=== PATIENT | female | born 1970 | race Caucasian/White ===

== ENCOUNTER → 2017-06-21 | Outpatient (CLI) | payer BC ==
--- NOTE | 2017-06-21 11:03 | CT ---
EXAMINATION TYPE: CT sinus wo con DATE OF EXAM: 06/21/2017 COMPARISON: NONE HISTORY: Chronic sinusitis CT DLP: 575 mGycm. Automated Exposure Control for Dose Reduction was Utilized. TECHNIQUE: CT scan of the sinuses is performed without contrast, axial images are obtained, coronal r eformatted images are also reviewed. FINDINGS: The paranasal sinuses including the frontal, ethmoid, sphenoid, and maxillary sinuses bila terally are well-aerated without abnormal opacification. The ostiomeatal complex is patent bilateral ly on the coronal images. Visualized portion of mastoid air cells show opacity on the left, there is suspected erosion or posto p change present at the lateral aspect of the temporal bone on the left. Temporomandibular joints corby w osteoarthritic change. The globes are intact bilaterally. No thickening of the tympanic membranes . Auditory ossicles show symmetric appearance, no erosion of the scutum bilaterally. IMPRESSION: Findings of the left temporal bone as described. Additional findings above.
== END | disposition home or self-care (01) ==
LOC: RADCTMAIN 08:14
PROVIDERS: ATTEND Otolaryngology
DX: M26.69 Other specified disorders of temporomandibular joint (principal); J32.9 Chronic sinusitis, unspecified
CPT/HCPCS: 70486

== ENCOUNTER 2017-06-30 08:53 | Day surgery (SDC) | payer BC ==
[2017-06-29 08:16] VITALS: BMI 30.5
[~2017-06-30 08:53] MED LIST: LACTATED RINGERS 1,000 ML IV SCH
[2017-06-30] MEDS ORDERED: LIDOCAINE 1% 20 ML VIAL (10MG/ML) FOR IV START INTRADERMA ONE (11:44)
[2017-06-30] MEDS ORDERED: LIDOCAINE 1% INJ 10MG/ML (20 ML MDV) ONE (11:47)
[2017-06-30] MEDS ORDERED: PROPOFOL 10 MG/ML 20 ML VIAL IV ONE (11:47)
[2017-06-30] MEDS ORDERED: fentaNYL (PF) 50 MCG/ML 2 ML AMP ONE (11:47)
[2017-06-30 11:53] VITALS: TEMP 97.3
--- NOTE | 2017-06-30 11:58 | P.PCN ---
Date of Procedure: 06/30/17 Procedure(s) Performed: BRIEF HISTORY: Patient is a 47-year-old, pleasant, white female, scheduled for an upper endoscopy as a part of evaluation of lungs any history of GERD and intermittent dysphagia to solids. PROCEDURE PERFORMED: Esophagogastroduodenoscopy with biopsy. PREOPERATIVE DIAGNOSIS: Long-standing history of GERD and intermittent dysphagia to solids. IV sedation per anesthesia. PROCEDURE: After informed consent was obtained, the patient was brought into the endoscopy unit. IV sedation was administered by Anesthesia under continuous monitoring. Initially the Olympus GIF-140 video endoscope was inserted into the mouth. Esophagus intubated without any difficulty. It was gradually advanced into the stomach and duodenum and carefully examined. The bulb and the second part of the duodenum appeared normal. The scope at this time was withdrawn to the stomach, adequately insufflated with air, and upon careful examination, mucosa of the antrum, had patchy areas of erythema and biopsies were done from this area. The body, cardia and the fundus appeared normal. The scope was then withdrawn into the esophagus. Small sliding Hiatal hernia noted. The GE junction was located at 36 cm from the incisors. There was once partial erosions noted at the GE junction consistent with LA grade A reflux esophagitis. The rest of the esophagus appeared normal and the patient tolerated the procedure well. IMPRESSION: 1. Mild antral gastritis. 2. Small hiatal hernia and LA grade A reflux esophagitis. RECOMMENDATIONS: The findings of this examination were discussed with the patient as well as a family. She was advised to follow with the biopsy results. She will continue with Pepcid 20 mg daily or twice daily based on the symptoms and continue to follow antireflux measures..
[2017-06-30 12:17] VITALS: BP 113/74; PULSE 69; RESP 16
== END 2017-06-30 12:38 | disposition home or self-care (01) ==
LOC: ORWHC2ENDO 08:53
PROVIDERS: ATTEND Internal Medicine Gastroenterology
DX: K29.50 Unspecified chronic gastritis without bleeding (principal); K44.9 Diaphragmatic hernia without obstruction or gangrene; K21.0 Gastro-esophageal reflux disease with esophagitis; Z79.3 Long term (current) use of hormonal contraceptives; Z79.51 Long term (current) use of inhaled steroids; Z79.899 Other long term (current) drug therapy; Z88.2 Allergy status to sulfonamides
CPT/HCPCS: 81025; 43239; J2001; J3010; J2704; 88305

== ENCOUNTER → 2020-08-19 | Outpatient (CLI) | payer BC ==
--- NOTE | 2020-08-20 14:15 | US ---
EXAMINATION TYPE: US thyroid st tissue head/neck DATE OF EXAM: 08/19/2020 COMPARISON: NONE CLINICAL HISTORY: E04.1 Thyroid nodule. h/o nodules and hypothyroidism per patient. Unsure where last imaging was done GLAND SIZE: Right Lobe: 4.0 x 1.3 x 1.9 cm Overall Parenchyma: heterogenous Left Lobe: 4.3 x 1.4 x 1.3 cm Overall Parenchyma: heterogeneous Isthmus Thickness: 0.5 cm NODULES RIGHT: # of nodules measured on right: 0 LEFT: # of nodules measured on left: 0 ISTHMUS: # of nodules measured in the isthmus: 0 Bilateral neck scanned, no evidence of lymphadenopathy. Diffusely heterogeneous bilaterally IMPRESSION: Diffusely heterogeneous thyroid parenchyma without discrete cyst or nodule. The thyroid gland is not enlarged.
== END | disposition home or self-care (01) ==
LOC: RADUSWWP 14:15
PROVIDERS: ATTEND Family Medicine
DX: E04.1 Nontoxic single thyroid nodule (principal); E03.9 Hypothyroidism, unspecified
CPT/HCPCS: 76536

== ENCOUNTER → 2020-09-27 | Outpatient (CLI) | payer BC ==
--- NOTE | 2020-09-28 03:10 | MR ---
EXAMINATION TYPE: MR cervical spine wo con DATE OF EXAM: 09/27/2020 COMPARISON: None HISTORY: Neck pain, left shoulder pain, headaches. Multiplanar multiecho imaging of the cervical spine without contrast. Cervical vertebra have normal alignment. There is mild posterior disc bulging at C5-6 and C6-7. Disc spaces are fairly normal. There is no compression fracture. The cervical spinal cord appears normal. There is no spinal stenosis. There is developmentally large spinal canal. Brainstem is intact. There is no evidence of cervical paraspinal mass. The neural foramina appear well maintained. The skull bas e is intact. IMPRESSION: Mild posterior disc bulging in the lower cervical spine. No spinal stenosis. No fracture.
== END | disposition home or self-care (01) ==
LOC: RADMRIMAIN 18:51
PROVIDERS: ATTEND Orthopaedic Surgery Orthopaedic Surgery of the Spine
DX: R20.2 Paresthesia of skin (principal); M25.78 Osteophyte, vertebrae; G56.02 Carpal tunnel syndrome, left upper limb; E66.3 Overweight; R29.2 Abnormal reflex; M79.12 Myalgia of auxiliary muscles, head and neck; M47.812 Spondylosis without myelopathy or radiculopathy, cervical region; R53.1 Weakness; M43.12 Spondylolisthesis, cervical region; M47.22 Other spondylosis with radiculopathy, cervical region; M50.122 Cervical disc disorder at C5-C6 level with radiculopathy; M50.123 Cervical disc disorder at C6-C7 level with radiculopathy
CPT/HCPCS: 72141

== ENCOUNTER → 2021-10-28 | Outpatient (CLI) | payer BC ==
--- NOTE | 2021-10-29 19:53 | MM ---
Reason for Exam: Screening (asymptomatic). Last mammogram was performed 8 year(s) and 0 month(s) ago. Patient History: Menarche at age 12. First Full-Term at age 25. Patient used Hormonal Contraceptives for 4 years. Paternal aunt had ovarian cancer, age 30. Mother had breast cancer, age 30. Risk Values: [place] 5 year model risk: 2.0%. NCI Lifetime model risk: 16.6%. Prior Study Comparison: 06/11/2008 Bilateral Screening Mammogram, [facility]. 03/18/2010 Bilateral Diagnostic Mammogram, [facility]. 10/23/2013 Bilateral Screening Mammogram, [facility]. Tissue Density: The breast tissue is heterogeneously dense. This may lower the sensitivity of mammography. Findings: Analyzed By CAD. No suspicious groups of microcalcifications, spiculated or lobular masses, architectural distortion or other secondary signs of malignancy are mammographically apparent. Overall Assessment: Benign, BI-RAD 2 Management: Screening Mammogram of both breasts in 1 year. A negative mammogram report should not preclude additional follow up of suspicious palpable abnormalities. Patient should continue monthly self breast exam. A clinical breast exam by your physician is recommended on an annual basis and results should be correlated with mammographic findings. Electronically signed and approved by: Alvarado Styles D.O. Radiologis
== END | disposition home or self-care (01) ==
LOC: RADMAMWWP 10:32
PROVIDERS: ATTEND Obstetrics & Gynecology
DX: Z12.31 Encounter for screening mammogram for malignant neoplasm of breast (principal)
CPT/HCPCS: 77063; 77067

== ENCOUNTER → 2022-07-31 | Outpatient (CLI) | payer BC | END | disposition home or self-care (01) | LOC: LABWHC1 14:33 | PROVIDERS: ATTEND Internal Medicine | DX: E06.3 Autoimmune thyroiditis (principal); E78.2 Mixed hyperlipidemia; K21.9 Gastro-esophageal reflux disease without esophagitis; R00.2 Palpitations | CPT/HCPCS: 36415; 85379 ==

== ENCOUNTER → 2022-09-23 | Outpatient (CLI) | payer BC ==
[2022-09-23 10:01] LABS: ALT 25 U/L (4-34); AST 24 U/L (14-36); African American GFR (CKD) >90 (>60 ml/min/1.73 sqM); Albumin 4.2 g/dL (3.5-5.0); Albumin/Globulin Ratio 1.6; Alkaline Phosphatase 77 U/L (38-126); Anion Gap 9 mmol/L; Blood Urea Nitrogen 10 mg/dL (7-17); Calcium 9.2 mg/dL (8.4-10.2); Carbon Dioxide 29 mmol/L (22-30); Chloride 102 mmol/L (98-107); Globulin 2.6 g/dL; Glucose 87 mg/dL (74-99); Non-African American GFR(CKD) 84 (>60 ml/min/1.73 sqM); Sodium 140 mmol/L (137-145); Total Bilirubin 0.6 mg/dL (0.2-1.3); Total Protein 6.8 g/dL (6.3-8.2)
[2022-09-23 10:10] LABS: Basophils % (A) 1 %; Eosinophils # (A) 0.3 k/uL (0-0.7); Eosinophils % (A) 4 %; HCT 43.6 % (34.0-46.0); HGB 14.8 gm/dL (11.4-16.0); Lymphocytes # (A) 2.3 k/uL (1.0-4.8); Lymphocytes % (A) 32 %; MCH 30.5 pg (25.0-35.0); MCHC 33.9 g/dL (31.0-37.0); MCV 90.1 fL (80.0-100.0); Mean Platelet Volume 8.1; Monocytes # (A) 0.4 k/uL (0-1.0); Monocytes % (A) 6 %; Neutrophils # (A) 4.1 k/uL (1.3-7.7); Neutrophils % (A) 56 %; Platelet Count 264 k/uL (150-450); RBC 4.84 m/uL (3.80-5.40); RDW 12.6 % (11.5-15.5); T4, Free (Free Thyroxine) 1.13 ng/dL (0.78-2.19); WBC 7.3 k/uL (3.8-10.6)
[2022-09-23 10:23] LABS: Potassium 4.3 mmol/L (3.5-5.1)
[2022-09-24 02:16] LABS: Chol/HDL Ratio 2.53 Ratio; LDL Cholesterol,Calculated 73.7 mg/dL (0.0-131.0)
[2022-09-24 02:17] LABS: Follicle Stimulating Hormone 37.3 mIU/mL
[2022-09-24 09:12] LABS: Progesterone 3.5 ng/mL
== END | disposition home or self-care (01) ==
LOC: LABWHC1 08:11
PROVIDERS: ATTEND Internal Medicine
DX: K21.9 Gastro-esophageal reflux disease without esophagitis (principal); N95.2 Postmenopausal atrophic vaginitis; M25.50 Pain in unspecified joint; E78.2 Mixed hyperlipidemia; E06.2 Chronic thyroiditis with transient thyrotoxicosis; R00.2 Palpitations
CPT/HCPCS: 36415; 80053; 80061; 82670; 83001; 84144; 84403; 84432; 84439; 84443; 85025; 85379

== ENCOUNTER → 2023-03-10 | Outpatient (CLI) | payer BC ==
--- NOTE | 2023-03-10 11:54 | NM ---
EXAMINATION TYPE: NM stress cardiolite complete DATE OF EXAM: 03/10/2023 COMPARISON: NONE CLINICAL INDICATION: Female, 53 years old with history of I25.10 ATHSCL HEART DISEASE; chest pain and palpitations with difficulty breathing. History of hypercholesteremia. TECHNIQUE: After the intravenous administration of 10 mCi Tc 99m Sestamibi - Rest images obtained 61 minutes post injection. The patient exercised using a BETTINA protocol and 1 minute prior to peak ex ercise was injected with 25.6 mCi Tc 99m Sestamibi - Stress images obtained 20 minutes post injection . FINDINGS: Targeted heart rate was achieved during performance of the study. Review of stress and rest SPECT kady ges demonstrates no distinct perfusion abnormality. Gated analysis shows normal wall motion with an estimated left ventricular ejection fraction of 73 %. IMPRESSION: No scintigraphic evidence for reversible ischemia
--- NOTE | 2023-03-10 12:26 | CA ---
Exercise Nuclear Stress Test Report Name: Aster Tate Exam Date: 03/10/2023 10:49 Exam Location: [facility] Ht (in): 67 Wt (lb): 190 BSA: 1.98 Ordering Phys: Meme Pozo MD Referring Phys: MEME POZO,, Technologist: DEANNA,, Age: 53 Gender: F : 1970 Procedure CPT: Indications: I25.10 Athscl heart disease ICD-10 Codes: Patient History: Abnormal CT, back pressure and shortness of breath. Medications: Meds past 24 hrs: Pretest Chest Pain: STRESS TEST Kamran Protocol Exercise Duration (min:sec): 07:[address] Depressions (mm): Angina Score: Duarte Score: Resting HR (bpm): 102 Peak HR (bpm): 157 Resting BP (mmHg): 139 / 101 Peak BP (mmHg): 206 / 103 MPHR: 167 Target HR: 142 % MPHR: 94 METS: 9.5 Total Dose: Peak Dose: Atropine: Double Product: 00007 BP Response: Stress Termination: Reached target heart rate Stress Symptoms: No chest pain or symptoms Stress Summary: ECG ANALYSIS Resting ECG: Stress ECG: CONCLUSIONS Good exercise tolerance Normal EKG in response to exercise Dr. Grayson De Guzman MD (Electronically Signed) Final Date: 10 March 2023 12:25
== END | disposition home or self-care (01) ==
LOC: RADNMMAIN 08:52
PROVIDERS: ATTEND Internal Medicine
DX: I25.10 Atherosclerotic heart disease of native coronary artery without angina pectoris (principal); R00.2 Palpitations; E78.00 Pure hypercholesterolemia, unspecified
CPT/HCPCS: 93017; 78452; A9500

== ENCOUNTER 2023-04-21 08:04 | Day surgery (SDC) | payer BC ==
[2023-04-14 08:42] VITALS: BMI 28.1
[2023-04-21] MEDS ORDERED: LACTATED RINGERS 1,000 ML IV ONE (08:35)
[2023-04-21 08:49] VITALS: TEMP 97.9
[2023-04-21] MEDS ORDERED: PROPOFOL 10 MG/ML 20 ML VIAL IV ONE (08:52)
--- NOTE | 2023-04-21 09:15 | P.PCN ---
Date of Procedure: 04/21/23 Procedure(s) Performed: Brief history: Patient is a pleasant 53-year-old white female scheduled for an elective upper endoscopy as well as colonoscopy as a part of evaluation of GERD and screening for colon cancer Procedure performed: Esophagogastroduodenoscopy with biopsy Colonoscopy Preoperative diagnosis: GERD and screening for colon cancer Anesthesia: MAC Procedure: After informed consent was obtained from the patient was brought into the endoscopy unit and IV sedation was administered by anesthesia under continuous monitoring. Initially upper endoscopy was done. The Olympus GF 160 video endoscope was inserted inserted into the mouth and esophagus intubated without any difficulty and was gradually advanced into the stomach and duodenum and carefully examined. The bulb and second part of the duodenum appeared normal. The scope was then withdrawn into the stomach adequately insufflated with air and upon careful examination the antrumhad mild gastritis and biopsies were done from this area. Mucosa of the body, cardia and fundus appeared normal. The scope was then withdrawn into the esophagus. The GE junction was located at 38 cm to the incisors. It appeared regular with2 superficial erosions consistent with LA grade B reflux esophagitis.. Rest of the esophagus appeared normal. Patient tolerated the procedure well. At this time the patient continued to remain sedation. Initial digital rectal examination was normal. Olympus CF 160 video colonoscope was then inserted into the rectum and gradually advanced to the cecum without any difficulty. Careful examination was performed as the scope was gradually being withdrawn. The prep was excellent. The cecum, ascending colon, transverse colon, descending colon, sigmoid colon and rectum appeared normal. Retroflexion was performed in the rectum and no lesions were noted. Patient tolerated the procedure well. Impression: 1.Upper endoscopy revealed mild antral gastritis and LA grade B reflux esophagitis 2. Colonoscopy revealed scattered sigmoid diverticulosis but no evidence of colorectal neoplasia Recommendations: Findings of this examination were discussed with the patient as well Gillian family. She was advised to follow with the biopsy results. Continue with Pepcid 20 mg twice daily and follow antireflux measures. Recommend a repeat screening colonoscopy in 10 years.
[2023-04-21 09:38] VITALS: BP 135/89; PULSE 79; RESP 18
== END 2023-04-21 09:46 | disposition home or self-care (01) ==
LOC: ORWHC2ENDO 08:04
PROVIDERS: ATTEND Internal Medicine Gastroenterology
DX: Z12.11 Encounter for screening for malignant neoplasm of colon (principal); K29.50 Unspecified chronic gastritis without bleeding; K21.00 Gastro-esophageal reflux disease with esophagitis, without bleeding; E78.5 Hyperlipidemia, unspecified; J30.2 Other seasonal allergic rhinitis; Z88.2 Allergy status to sulfonamides; Z88.0 Allergy status to penicillin; Z88.8 Allergy status to other drugs, medicaments and biological substances; Z79.899 Other long term (current) drug therapy
CPT/HCPCS: 88305; 45378; 43239; J2704

== ENCOUNTER → 2024-07-24 | Outpatient (CLI) | payer BC ==
--- NOTE | 2024-07-24 11:16 | XR ---
EXAMINATION TYPE: XR shoulder complete RT DATE OF EXAM: 07/24/2024 11:11 AM INDICATION: Patient age:Female; 54 years old; Reason for study: S46.011ASTRAIN OF MUSC/TEND THE ROTATOR CUFF OF RI; pain COMPARISON: None TECHNIQUE: The right shoulder was examined in AP, internally rotated and scapular Y projections. . FINDINGS: No evidence of acute osseous pathology, joint dislocation, or soft tissue swelling. The remaining por tions of the visualized chest are unremarkable. IMPRESSION: No acute osseous pathology. [facility], , 07/24/2024 11:14 AM
--- NOTE | 2024-07-24 11:18 | XR ---
EXAMINATION TYPE: XR cervical spine w flex/ext DATE OF EXAM: 07/24/2024 11:11 AM INDICATION: Patient age:Female; 54 years old; Reason for study: S46.011ASTRAIN OF MUSC/TEND THE ROTATOR CUFF OF RI; PHH, pain COMPARISON: None TECHNIQUE: The cervical spine was imaged in frontal, lateral, bilateral oblique, extension, flexion, and odontoid projections. FINDINGS: No acute fracture. Grade 1 anterolisthesis of C4 on C5. Mild multilevel anterior osteophytosis. Mild multilevel disc space narrowing. Pedicles are intact. Soft tissues are within normal limits. The odo ntoid appears intact. IMPRESSION: 1. No fracture or dislocation. 2. Mild degenerative disc disease changes of the cervical spine. 3. Grade 1 anterolisthesis of C4 on C5. [facility], , 07/24/2024 11:16 AM
== END | disposition home or self-care (01) ==
LOC: RADXRMAIN 10:46
PROVIDERS: ATTEND Internal Medicine
DX: S46.011A Strain of muscle(s) and tendon(s) of the rotator cuff of right shoulder, initial encounter (principal); M50.30 Other cervical disc degeneration, unspecified cervical region; M43.12 Spondylolisthesis, cervical region
CPT/HCPCS: 72052

== ENCOUNTER → 2024-08-14 | Outpatient (CLI) | payer BC ==
--- NOTE | 2024-08-14 20:03 | CT ---
EXAMINATION TYPE: CT iac wo con CT DLP: 142.70 mGycm, Automated exposure control for dose reduction was used. DATE OF EXAM: 08/14/2024 5:13 PM INDICATION: Patient age:Female; 54 years old; Reason for study: H92.01 RIGHT EAR PAIN; PH[facility]. COMPARISON: CT sinus 06/21/2017. TECHNIQUE: Multiple thin axial images were obtained through the temporal bones and internal auditory canals. Additional coronal reformatted images were obtained. No IV contrast was utilized. FINDINGS: Left Temporal Bone: External Ear: The external auditory canal is unremarkable, The tympanic membrane is present and unrem arkable. Middle Ear: Postsurgical changes with implant identified within the middle ear. The ossicles demonst rate a normal appearance. Prussak's space is clear and the scutum is intact. There is no evidence of osseous erosion and the tegmen tympani is intact. Inner Ear: Cochlea, vestibule and semi circular canals are intact. No evidence of carotid canal dehi scence. Two and a half turns of the cochlea are identified. The vestibular aqueduct is not enlarged. Mastoid Air Cells: Postsurgical changes from partial mastoidectomy with some opacification of the mas toid air cells. The tegmen mastoideum is intact. Internal Auditory Canal: The internal auditory canal is unremarkable. Right Temporal Bone: External Ear: The external auditory canal is unremarkable, The tympanic membrane is present and unrem arkable. Middle Ear: The ossicles demonstrate a normal appearance. Prussak's space is clear and the scutum i s intact. There is no evidence of osseous erosion and the tegmen tympani is intact. Inner Ear: Cochlea, vestibule and semi circular canals are unremarkable. No evidence of carotid mylene l dehiscence. Two and a half turns of the cochlea are identified. The vestibular aqueduct is not enl arged. Mastoid Air Cells: The mastoid air cells are clear. The tegmen mastoideum is intact. The aditus ad an trum is clear. Internal Auditory Canal: The internal auditory canal is unremarkable. Development of a 4 mm calcified osteoma within the anterior right ethmoid sinus. The remaining visual ized paranasal sinuses are clear. Osteoarthritic change of the right TMJ joint. IMPRESSION: 1. No CT evidence for abnormality within the right internal auditory canal. 2. Similar postsurgical changes from partial left mastoidectomy with middle ear implant and mastoid e ffusion. [facility], , 08/14/2024 8:00 PM
== END | disposition home or self-care (01) ==
LOC: RADCTMAIN 16:48
PROVIDERS: ATTEND Internal Medicine
DX: H92.01 Otalgia, right ear (principal); H95.192 Other disorders following mastoidectomy, left ear
CPT/HCPCS: 70480